=== PATIENT | female | born 1950 | race Caucasian/White ===

== ENCOUNTER 2024-03-06 09:50 | Outpatient (AMB) | payer MEDICARE, BC, SELFPAY ==
[2024-03-06 10:19] VITALS: BP 135/79; PULSE 65; RESP 18; TEMP 35.8; O2SAT 98; BMI 24.9
--- NOTE | 2024-03-06 10:19 | PD.GSCLVISIT ---
[facility] - [facility] 03/06/24 10:19 Height 1.68 m Height Method Stated Weight 70.392 kg Weight Measurement Method Standing Scale BMI 24.9 BP 135/79 H Blood Pressure Source Automatic Cuff Blood Pressure Location Right Upper Arm Position Sitting Respiration 18 Pulse 65 Pulse Source Monitor Temp 96.4 F L Temp Source Temporal Artery Scan Pulse Oximetry (%) 98 Oxygen Delivery Method Room Air Med/Allergies Allergies & Medications Allergies No Known Allergies Allergy (Verified 03/06/24 10:20) Medication Reconciliation losartan 50 mg tablet 50 mg PO QDAY 10/21/23 [History Confirmed 03/06/24] telmisartan 80 mg-amlodipine 10 mg tablet 1 tab PO QDAY 10/21/23 [History Confirmed 03/06/24] MA Intake Visit Data Collection New Patient or Established: Established Patient (seen at [facility] within 3 years) Seen by Clinical Staff ONLY (RN/MA): No Pain Present Currently: No Garment Alteration Examiner Required: No PCP or OBGYN visit in last 3 months: Yes Hx Now: No Do You Feel Safe at Home: Yes Authorities Contacted: N/A Smoking Status Smoking Status: Never smoker Immunization / Flu Flu Vaccine in the Last 12 Months: No Flu Vaccine Exclusion Criteria: Refused by Patient Past Medical History Past Medical History CARDIAC: Negative Cardiac Disorders or Congestive Heart Failure RESPIRATORY: Negative Chronic Obstructive Pulmonary Disease (COPD) or Asthma GENITOURINARY: Negative Renal Disease ENDOCRINE: Negative Diabetes Mellitus Type 1 or Diabetes Mellitus Type 2 HEMATOLOGIC: Negative Sickle Cell Disease Social History SMOKING STATUS: Smoking status: Never smoker ALCOHOL: Alcohol Intake: Current ALCOHOL FREQUENCY: Alcohol Intake Frequency: 0-2 Drinks per Day HOUSING: Housing: House LIVES WITH: Lives With: Spouse HPI HPI Narrative 73F with HTN referred with a perianal abscess s/p aspiration 10/20, with subsequent perianal fistula here for follow up. Pt reports she has had some days with no drainage but since yesterday the drainage returned. She continues to optimize her bowel regimen and is avoiding straining/diarrhea ROS Review of Systems Systems Reviewed: All systems reviewed, normal except as documented Objective/Exam General General Appearance: alert, cooperative and well groomed Resp Respiratory exam: Absent respiratory distress Rectal Rectal exam: Present other (external opening approx 3cm from the anal verge with red granulation tissue, no surrounding erythema. the other external opening which was 1cm from the anal verge is now closed) Assessment & Plan Diagnosis / Problem List (1) Perianal fistula: Status: Acute Assessment & Plan: 73F with HTN referred with a perianal abscess s/p aspiration 10/20, with subsequent perianal fistula here for follow up. I explained risks/benefits of colonoscopy as well as seton placement; all questions were answered and pt is agreeable to proceeding Advanced Care Planning Advance care planning discussed with:: patient Office Procedures GNS Level of Care Nursing/Assessment Patient Status: Established Patient Nursing Assessment/Reassesment: Medication Reconciliation, Update PMH in EMR and Vital Signs Coordination of Care: Complex Care and Chronic Disease 1-5, Education Complex Pt/Fam, Consent,records obtained, informed consent and Staff clarify orders Established Patient Charge Established Patient Point Assignment: 90 Established Patient Point Charge: EP Level 3 (80-115) Patient Portal Questionaires Social History Living Situation History Housing: House Tobacco History Smoking Status: Never smoker Alcohol History Alcohol Intake: Current Alcohol Intake Frequency: 0-2 Drinks per Day Domestic Abuse History Do You Feel Safe at Home: Yes Review of Systems Report any current symptoms Only answer those that you have currently: Past Medical History Past Medical History Have you ever been diagnosed with any of the following: Cardiology Problems Congestive Heart Failure: No Respiratory Problems Chronic Obstructive Pulmonary Disease (COPD): No Asthma: No Genital/Urinary Problems Renal Disease: No Endocrine Problems Diabetes Mellitus Type 1: No Diabetes Mellitus Type 2: No Blood Problems Sickle Cell Disease: No
== END 2024-03-06 10:44 | disposition home or self-care (01) ==
LOC: HODSRG 09:50
PROVIDERS: PCP Family Medicine; Referring Provider Family Medicine; Supervising Provider Surgery; Visit Provider Surgery
DX: K60.30 Anal fistula, unspecified (principal)
CPT/HCPCS: 99213; G0463

== ENCOUNTER 2024-04-20 13:57 | Outpatient (AMB) | payer MEDICARE, BC, SELFPAY ==
[2024-04-20 14:03] VITALS: BP 182/78; PULSE 64; RESP 16; TEMP 35.8; O2SAT 98; BMI 25.4
--- NOTE | 2024-04-20 14:03 | GSCOFFNT_ITS ---
[facility] - [facility] 04/20/24 14:03 Height 1.68 m Height Method Stated Weight 71.469 kg Weight Measurement Method Standing Scale BMI 25.4 BP 182/78 H Blood Pressure Source Automatic Cuff Blood Pressure Location Right Upper Arm Position Sitting Respiration 16 Pulse 64 Pulse Source Monitor Temp 96.4 F L Temp Source Temporal Artery Scan Pulse Oximetry (%) 98 Oxygen Delivery Method Room Air Med/Allergies Allergies & Medications Allergies No Known Allergies Allergy (Verified 04/20/24 14:04) Medication Reconciliation atenolol 25 mg tablet 25 mg PO DAILY 03/10/24 [History Confirmed 04/20/24] dorzolamide-timolol (PF) 2 %-0.5 % eye drops in a dropperette (Cosopt (PF)) 1 drp ophthalmic (eye) BID 03/10/24 [History Confirmed 04/20/24] valsartan 80 mg-hydrochlorothiazide 12.5 mg tablet 1 tab PO DAILY 03/10/24 [History Confirmed 04/20/24] ibuprofen 600 mg tablet 600 mg PO Q6H PRN pain #30 tabs 03/15/24 [Rx Confirmed 04/20/24] oxycodone-acetaminophen 5 mg-325 mg tablet (Endocet) 1 tab PO Q6H PRN pain #30 tabs 03/15/24 [Rx Confirmed 04/20/24] MA Intake Visit Data Collection New Patient or Established: Established Patient (seen at [facility] within 3 years) Seen by Clinical Staff ONLY (RN/MA): No Reason for Visit:: post op fistula Pain Present Currently: No PCP or OBGYN visit in last 3 months: Yes Hx Now: No Do You Feel Safe at Home: Yes Smoking Status Smoking Status: Never smoker Immunization / Flu Flu Vaccine in the Last 12 Months: No Flu Vaccine Exclusion Criteria: Refused by Patient Past Medical History Past Medical History NEUROLOGIC: Negative Neurological Disorders or Seizures CARDIAC: Positive Cardiac Disorders and Hypertension; Negative Congestive Heart Failure RESPIRATORY: Negative Chronic Obstructive Pulmonary Disease (COPD) or Asthma GASTROINTESTINAL: Positive Gastrointestinal Disorders and Hemorrhoids; Negative Hepatitis GENITOURINARY: Negative Genitourinary Disorders or Renal Disease REPRODUCTIVE: Positive Previous Pregnancies (6, 3 children) MUSCULOSKELETAL: Positive Arthritis ENT: Positive Glaucoma ENDOCRINE: Negative Endocrine Disorders, Diabetes Mellitus Type 1 or Diabetes Mellitus Type 2 HEMATOLOGIC: Negative Blood Disorders or Sickle Cell Disease OTHER HISTORY: Positive Hospitalization (surgery,), Chicken Pox, Measles and Mumps; Negative Autoimmune Disease, Shingles, Blood Transfusions, Blood Transfusion Reaction, Anesthesia Reactions or Cancer Family History FAMILY HISTORY: Negative Family Psychiatric Problems, Family Respiratory Disorders, Family Cardiac Disorders, Family Gastrointestinal Problems, Family Cancer, Family Surgery or Family Anesthesia Reaction Surgical History SURGICAL: Positive Section (x3) Social History SMOKING STATUS: Smoking status: Never smoker ALCOHOL: Alcohol Intake: Current ALCOHOL FREQUENCY: Alcohol Intake Frequency: 0-2 Drinks per Day HOUSING: Housing: House LIVES WITH: Lives With: Spouse HPI HPI Narrative 73F with HTN referred with a perianal abscess s/p aspiration 10/20, with subsequent perianal fistula now s/p colonoscopy followed by seton placement 03/15/24, here for planned follow up. Pt states she had not been having any drainage from the fistula until this past week when she began having diarrhea, which she relates to her diagnosis of IBS. Pt denies any pain to the area, states she did not need any pain medication after surgery, denies any new complaints ROS Review of Systems Systems Reviewed: All systems reviewed, normal except as documented Objective/Exam General General Appearance: alert, cooperative and well groomed Resp Respiratory exam: Absent respiratory distress Rectal Rectal exam: Present other (right perianal fistula with seton in place, no surrounding erythema, no fluctuance or tenderness) Results Colonoscopy report and pathology of polyp reviewed, benign mucosa Assessment & Plan Diagnosis / Problem List (1) Perianal fistula: Status: Acute Assessment & Plan: 73F with HTN referred with a perianal abscess s/p aspiration 10/20, with subsequent perianal fistula now s/p colonoscopy followed by seton placement 03/15/24, here for planned follow up. As pt is having ongoing draining I explained that seton should remain in place and we will follow up in 6 weeks. All questions were answered and pt expressed understanding Advanced Care Planning Advance care planning discussed with:: other Office Procedures GNS Level of Care Nursing/Assessment Patient Status: Established Patient Nursing Assessment/Reassesment: Medication Reconciliation, Update PMH in EMR and Vital Signs Coordination of Care: Complex Care and Chronic Disease 1-5, Consent,records obtained, informed consent, Education Simp Pt/Fam, Results/Orders obtained and Staff clarify orders Established Patient Charge Established Patient Point Assignment: 90 Established Patient Point Charge: EP Level 3 (80-115) Patient Portal Questionaires Social History Living Situation History Housing: House Tobacco History Smoking Status: Never smoker Alcohol History Alcohol Intake: Current Alcohol Intake Frequency: 0-2 Drinks per Day Domestic Abuse History Do You Feel Safe at Home: Yes Review of Systems Report any current symptoms Only answer those that you have currently: Past Medical History Past Medical History Have you ever been diagnosed with any of the following: Neurological Problems Seizures: No Cardiology Problems Congestive Heart Failure: No Hypertension: Yes Respiratory Problems Chronic Obstructive Pulmonary Disease (COPD): No Asthma: No Stomache/Intestinal Problems Hepatitis: No Hemorrhoids: Yes Genital/Urinary Problems Renal Disease: No Reproductive Problems Previous Pregnancies: Yes (6, 3 children) Musculoskeletal Problems Arthritis: Yes Head,Eye,Nose,Throat Problems Glaucoma: Yes Endocrine Problems Diabetes Mellitus Type 1: No Diabetes Mellitus Type 2: No Blood Problems Sickle Cell Disease: No Other Problems Hospitalization: Yes (surgery,) Autoimmune Disease: No Shingles: No Blood Transfusions: No Blood Transfusion Reaction: No Anesthesia Reactions: No Chicken Pox: Yes Measles: Yes Mumps: Yes Cancer: No
== END 2024-04-20 14:36 | disposition home or self-care (01) ==
LOC: HODSRG 13:57
PROVIDERS: PCP Family Medicine; Referring Provider Family Medicine; Supervising Provider Surgery; Visit Provider Surgery
DX: Z48.815 Encounter for surgical aftercare following surgery on the digestive system (principal)
CPT/HCPCS: 99213; G0463

== ENCOUNTER → 2024-05-02 | Outpatient (CLI) | payer MEDICARE, BC, SELFPAY ==
--- NOTE | 2024-05-02 13:30 | XR_ITS ---
Examination: Breast ultrasound, unilateral, left complete Date and time of exam: May 02, 2024 1341 hrs. Indications: Mammogram March 17, 2024 12 mm focal asymmetry inner left breast CC view, anterior depth Technique: Real-time keller scale ultrasonographic imaging performed left breast including all 4 quadrants as well as nipple retroareolar and axillary region. Findings: 9:00 hyperechoic mass 3 x 5 mm 10:00 oval mass circumscribed 6 x 6 mm Impression: BI-RADS Category 3: Probably benign findings Recommend 1 additional 6 month left breast sonogram follow-up to document stability of nodules described above
--- NOTE | 2024-05-02 14:15 | XR_ITS ---
Examination: Diagnostic digital mammography, unilateral, left Computer aided detection 3-D breast Tomosynthesis, unilateral Date and time of exam: Or 0202 hrs. Indications: Mammogram March 17, 2024 12 mm focal asymmetry inner left breast CC view Technique: Nonmagnified MLO, CC views of the left breast have been obtained, reconstructed from 3-D Tomosynthesis images. R2 computer aided detection program utilized for evaluation of suspicious masses and/or abnormal calcifications. 3-D Tomosynthesis images obtained. Findings: Scattered areas of fibroglandular density. No suspicious mass is noted on the spot compression views Impression: BI-RADS category 2: Benign findings Return to yearly follow-up mammography Please see the left breast sonogram report today recommending 6 month left breast sonogram follow-up to document stability of 9:00 10:00 nodules left breast described on the ultrasound report
== END | disposition home or self-care (01) ==
LOC: CDIM 13:15
PROVIDERS: PCP Family Medicine; Referring Provider Internal Medicine; Visit Provider Internal Medicine
DX: R92.322 Mammographic fibroglandular density, left breast (principal); N63.25 Unspecified lump in the left breast, overlapping quadrants; N63.22 Unspecified lump in the left breast, upper inner quadrant
CPT/HCPCS: 76641; 77061; 77065; G0279

== ENCOUNTER 2024-06-05 14:26 | Outpatient (AMB) | payer MEDICARE, BC, SELFPAY ==
[2024-06-05 14:36] VITALS: BP 128/74; PULSE 75; RESP 19; TEMP 36.1; O2SAT 97; BMI 25.0
--- NOTE | 2024-06-05 14:36 | GSCOFFNT_ITS ---
Vital Signs - [facility] 06/05/24 14:36 Height 1.68 m Height Method Stated Weight 70.817 kg Weight Measurement Method Standing Scale BMI 25.0 BP 128/74 Blood Pressure Source Automatic Cuff Blood Pressure Location Left Upper Arm Position Sitting Respiration 19 Pulse 75 Pulse Source Monitor Temp 96.9 F Temp Source Temporal Artery Scan Pulse Oximetry (%) 97 Oxygen Delivery Method Room Air Med/Allergies Allergies & Medications Allergies No Known Allergies Allergy (Verified 06/05/24 14:37) Medication Reconciliation atenolol 25 mg tablet 25 mg PO DAILY 03/10/24 [History Confirmed 06/05/24] dorzolamide-timolol (PF) 2 %-0.5 % eye drops in a dropperette (Cosopt (PF)) 1 drp ophthalmic (eye) BID 03/10/24 [History Confirmed 06/05/24] valsartan 80 mg-hydrochlorothiazide 12.5 mg tablet 1 tab PO DAILY 03/10/24 [History Confirmed 06/05/24] ibuprofen 600 mg tablet 600 mg PO Q6H PRN pain #30 tabs 03/15/24 [Rx Confirmed 06/05/24] oxycodone-acetaminophen 5 mg-325 mg tablet (Endocet) 1 tab PO Q6H PRN pain #30 tabs 03/15/24 [Rx Confirmed 06/05/24] MA Intake Visit Data Collection New Patient or Established: Established Patient (seen at [facility] within 3 years) Seen by Clinical Staff ONLY (RN/MA): No Pain Present Currently: No Cook Enchilada Required: No PCP or OBGYN visit in last 3 months: Yes Hx Now: No Do You Feel Safe at Home: Yes Authorities Contacted: N/A Smoking Status Smoking Status: Never smoker Immunization / Flu Flu Vaccine in the Last 12 Months: No Flu Vaccine Exclusion Criteria: No Exclusion Criteria Past Medical History Past Medical History NEUROLOGIC: Negative Neurological Disorders or Seizures CARDIAC: Positive Cardiac Disorders and Hypertension; Negative Congestive Heart Failure RESPIRATORY: Negative Chronic Obstructive Pulmonary Disease (COPD) or Asthma GASTROINTESTINAL: Positive Gastrointestinal Disorders and Hemorrhoids; Negative Hepatitis GENITOURINARY: Negative Genitourinary Disorders or Renal Disease REPRODUCTIVE: Positive Previous Pregnancies (6, 3 children) MUSCULOSKELETAL: Positive Arthritis ENT: Positive Glaucoma ENDOCRINE: Negative Endocrine Disorders, Diabetes Mellitus Type 1 or Diabetes Mellitus Type 2 HEMATOLOGIC: Negative Blood Disorders or Sickle Cell Disease OTHER HISTORY: Positive Hospitalization (surgery,), Chicken Pox, Measles and Mumps; Negative Autoimmune Disease, Shingles, Blood Transfusions, Blood Transfusion Reaction, Anesthesia Reactions or Cancer Family History FAMILY HISTORY: Negative Family Psychiatric Problems, Family Respiratory Disorders, Family Cardiac Disorders, Family Gastrointestinal Problems, Family Cancer, Family Surgery or Family Anesthesia Reaction Surgical History SURGICAL: Positive Section (x3) Social History SMOKING STATUS: Smoking status: Never smoker ALCOHOL: Alcohol Intake: Current ALCOHOL FREQUENCY: Alcohol Intake Frequency: 0-2 Drinks per Day HOUSING: Housing: House LIVES WITH: Lives With: Spouse HPI HPI Narrative 73F with HTN referred with a perianal abscess s/p aspiration 10/20, with subsequent perianal fistula now s/p colonoscopy followed by seton placement 03/15/24, here for planned follow up. Pt states she has had no drainage the past couple of weeks, and she has no pain except the skin lateral to the seton is somewhat irritated. Her BMs remain regular without any straining or diarrhea Objective/Exam General General Appearance: alert, cooperative and well groomed Resp Respiratory exam: Absent respiratory distress Rectal Rectal exam: Present other (left perianal seton in place with small area of eryt karina lateral to the external opening, tender, no fluctuance or bleeding) Assessment & Plan Diagnosis / Problem List (1) Perianal fistula: Status: Acute Assessment & Plan: 73F with perianal fistula s/p seton placement 03/2024, now with decreased draina ge planned for definitive surgery KRYS. I explained benefits/risks of ligation of intersphincteric fistula tract including pain, bleeding, infection, incontinence, and fistula persistence/recurrence. Pt expressed understanding and agrees to proceed Advanced Care Planning Advance care planning discussed with:: patient Office Procedures GNS Level of Care Nursing/Assessment Patient Status: Established Patient Nursing Assessment/Reassesment: Medication Reconciliation, Update PMH in EMR and Vital Signs Coordination of Care: Complex Care and Chronic Disease 1-5, Consent,records obtained, informed consent, Education Simp Pt/Fam, Results/Orders obtained and Staff clarify orders Established Patient Charge Established Patient Point Assignment: 90 Established Patient Point Charge: EP Level 3 (80-115) Patient Portal Questionaires Social History Living Situation History Housing: House Tobacco History Smoking Status: Never smoker Alcohol History Alcohol Intake: Current Alcohol Intake Frequency: 0-2 Drinks per Day Domestic Abuse History Do You Feel Safe at Home: Yes Review of Systems Report any current symptoms Only answer those that you have currently: Past Medical History Past Medical History Have you ever been diagnosed with any of the following: Neurological Problems Seizures: No Cardiology Problems Congestive Heart Failure: No Hypertension: Yes Respiratory Problems Chronic Obstructive Pulmonary Disease (COPD): No Asthma: No Stomache/Intestinal Problems Hepatitis: No Hemorrhoids: Yes Genital/Urinary Problems Renal Disease: No Reproductive Problems Previous Pregnancies: Yes (6, 3 children) Musculoskeletal Problems Arthritis: Yes Head,Eye,Nose,Throat Problems Glaucoma: Yes Endocrine Problems Diabetes Mellitus Type 1: No Diabetes Mellitus Type 2: No Blood Problems Sickle Cell Disease: No Other Problems Hospitalization: Yes (surgery,) Autoimmune Disease: No Shingles: No Blood Transfusions: No Blood Transfusion Reaction: No Anesthesia Reactions: No Chicken Pox: Yes Measles: Yes Mumps: Yes Cancer: No
== END 2024-06-05 14:55 | disposition home or self-care (01) ==
PROVIDERS: PCP Family Medicine; Referring Provider Family Medicine; Supervising Provider Surgery; Visit Provider Surgery
DX: K60.30 Anal fistula, unspecified (principal)
CPT/HCPCS: 99213; G0463

== ENCOUNTER 2024-06-29 11:28 | Outpatient (AMB) | payer MEDICARE, BC, SELFPAY ==
[2024-06-29 11:35] VITALS: BP 169/83; PULSE 64; RESP 18; TEMP 36.4; O2SAT 98; BMI 25.5
--- NOTE | 2024-06-29 11:35 | PD.GSCLVISIT ---
Vital Signs - [facility] 06/29/24 11:35 Height 1.68 m Height Method Stated Weight 71.838 kg Weight Measurement Method Standing Scale BMI 25.5 BP 169/83 H Blood Pressure Source Automatic Cuff Blood Pressure Location Left Upper Arm Position Sitting Respiration 18 Pulse 64 Pulse Source Monitor Temp 97.6 F Temp Source Temporal Artery Scan Pulse Oximetry (%) 98 Oxygen Delivery Method Room Air Med/Allergies Allergies & Medications Allergies No Known Allergies Allergy (Verified 06/05/24 14:37) MA Intake Visit Data Collection New Patient or Established: Established Patient (seen at [facility] within 3 years) Seen by Clinical Staff ONLY (RN/MA): No Pain Present Currently: No Pain scale:: 0 System Support Administrator Required: No PCP or OBGYN visit in last 3 months: No Do You Feel Safe at Home: Yes Authorities Contacted: N/A Smoking Status Smoking Status: Never smoker Immunization / Flu Flu Vaccine in the Last 12 Months: No Flu Vaccine Exclusion Criteria: Refused by Patient Past Medical History Past Medical History NEUROLOGIC: Negative Neurological Disorders or Seizures CARDIAC: Positive Cardiac Disorders and Hypertension; Negative Congestive Heart Failure RESPIRATORY: Negative Chronic Obstructive Pulmonary Disease (COPD) or Asthma GASTROINTESTINAL: Positive Gastrointestinal Disorders and Hemorrhoids; Negative Hepatitis GENITOURINARY: Negative Genitourinary Disorders or Renal Disease REPRODUCTIVE: Positive Previous Pregnancies (6, 3 children) MUSCULOSKELETAL: Positive Arthritis ENT: Positive Glaucoma ENDOCRINE: Negative Endocrine Disorders, Diabetes Mellitus Type 1 or Diabetes Mellitus Type 2 HEMATOLOGIC: Negative Blood Disorders or Sickle Cell Disease OTHER HISTORY: Positive Hospitalization (surgery,), Chicken Pox, Measles and Mumps; Negative Autoimmune Disease, Shingles, Blood Transfusions, Blood Transfusion Reaction, Anesthesia Reactions or Cancer Family History FAMILY HISTORY: Negative Family Psychiatric Problems, Family Respiratory Disorders, Family Cardiac Disorders, Family Gastrointestinal Problems, Family Cancer, Family Surgery or Family Anesthesia Reaction Surgical History SURGICAL: Positive Section (x3) Social History SMOKING STATUS: Smoking status: Never smoker ALCOHOL: Alcohol Intake: Current ALCOHOL FREQUENCY: Alcohol Intake Frequency: 0-2 Drinks per Day HOUSING: Housing: House LIVES WITH: Lives With: Spouse HPI HPI Narrative 73F with perianal fistula s/p seton placement 03/2024, here for follow up before definitive surgery. Pt states for the past couple of weeks she has noticed a slight increase in drainage; she does not require a pad every day but does feel the drainage at times when she walks. Her BMs remain soft and regular without any straining and she has no pain to the area ROS Review of Systems Systems Reviewed: All systems reviewed, normal except as documented Objective/Exam General General Appearance: alert, cooperative and well groomed Resp Respiratory exam: Absent respiratory distress Rectal Rectal exam: Present other (seton in place to right perianal fistula, no active drainage, no bleeding, no erythema) Assessment & Plan Diagnosis / Problem List (1) Perianal fistula: Status: Acute Assessment & Plan: 73F with perianal fistula s/p seton placement 03/2024, who had been planned for definitive surgery Jul 05, 2024 however has noticed a slight increase in drainage in the past couple of weeks. Given this I explained it will be best to hold off on surgery to increase the chances of cure. Pt expressed understanding and is agreeable with this plan Advanced Care Planning Advance care planning discussed with:: other Office Procedures GNS Level of Care Nursing/Assessment Patient Status: Established Patient Nursing Assessment/Reassesment: Medication Reconciliation, Update PMH in EMR and Vital Signs Coordination of Care: Complex Care and Chronic Disease 1-5, Consent,records obtained, informed consent, Lab and Imaging orders, Results/Orders obtained and Staff clarify orders Established Patient Charge Established Patient Point Assignment: 90 Established Patient Point Charge: EP Level 3 (80-115) Patient Portal Questionaires Social History Living Situation History Housing: House Tobacco History Smoking Status: Never smoker Alcohol History Alcohol Intake: Current Alcohol Intake Frequency: 0-2 Drinks per Day Domestic Abuse History Do You Feel Safe at Home: Yes Review of Systems Report any current symptoms Only answer those that you have currently: Past Medical History Past Medical History Have you ever been diagnosed with any of the following: Neurological Problems Seizures: No Cardiology Problems Congestive Heart Failure: No Hypertension: Yes Respiratory Problems Chronic Obstructive Pulmonary Disease (COPD): No Asthma: No Stomache/Intestinal Problems Hepatitis: No Hemorrhoids: Yes Genital/Urinary Problems Renal Disease: No Reproductive Problems Previous Pregnancies: Yes (6, 3 children) Musculoskeletal Problems Arthritis: Yes Head,Eye,Nose,Throat Problems Glaucoma: Yes Endocrine Problems Diabetes Mellitus Type 1: No Diabetes Mellitus Type 2: No Blood Problems Sickle Cell Disease: No Other Problems Hospitalization: Yes (surgery,) Autoimmune Disease: No Shingles: No Blood Transfusions: No Blood Transfusion Reaction: No Anesthesia Reactions: No Chicken Pox: Yes Measles: Yes Mumps: Yes Cancer: No
== END 2024-06-29 11:51 | disposition home or self-care (01) ==
LOC: HODSRG 11:28
PROVIDERS: PCP Family Medicine; Referring Provider Family Medicine; Supervising Provider Surgery; Visit Provider Surgery
DX: K60.30 Anal fistula, unspecified (principal)
CPT/HCPCS: 99213; G0463

== ENCOUNTER 2024-08-07 10:50 | Outpatient (AMB) | payer MEDICARE, BC, SELFPAY ==
[2024-08-07 11:09] VITALS: BP 158/73; PULSE 56; RESP 18; TEMP 36.4; O2SAT 99; BMI 25.4
--- NOTE | 2024-08-07 11:09 | GSCOFFNT_ITS ---
[facility] - [facility] 08/07/24 11:09 Height 1.68 m Height Method Stated Weight 71.838 kg Weight Measurement Method Standing Scale BMI 25.4 BP 158/73 H Blood Pressure Source Automatic Cuff Blood Pressure Location Right Upper Arm Position Sitting Respiration 18 Pulse 56 L Pulse Source Monitor Temp 97.6 F Temp Source Temporal Artery Scan Pulse Oximetry (%) 99 Oxygen Delivery Method Room Air Med/Allergies Allergies & Medications Allergies No Known Allergies Allergy (Verified 08/07/24 11:10) Medication Reconciliation atenolol 25 mg tablet 25 mg PO DAILY 03/10/24 [History Confirmed 08/07/24] dorzolamide-timolol (PF) 2 %-0.5 % eye drops in a dropperette (Cosopt (PF)) 1 drp ophthalmic (eye) BID 03/10/24 [History Confirmed 08/07/24] ibuprofen 600 mg tablet 600 mg PO Q6H PRN pain #30 tabs 03/15/24 [Rx Confirmed 08/07/24] oxycodone-acetaminophen 5 mg-325 mg tablet (Endocet) 1 tab PO Q6H PRN pain #30 tabs 03/15/24 [Rx Confirmed 08/07/24] valsartan 80 mg tablet 80 mg PO QDAY 08/07/24 [History Confirmed 08/07/24] MA Intake Visit Data Collection New Patient or Established: Established Patient (seen at [facility] within 3 years) Reason for Visit:: POSS ABSCESS Pain Present Currently: Yes Pain Location: Buttock Pain scale:: 3 Pain Scale Used: [employer]ment Alteration Required: No PCP or OBGYN visit in last 3 months: Yes Hx Now: No Do You Feel Safe at Home: Yes Authorities Contacted: N/A Smoking Status Smoking Status: Never smoker Immunization / Flu Flu Vaccine in the Last 12 Months: Yes Flu Vaccine Exclusion Criteria: No Exclusion Criteria Past Medical History Past Medical History NEUROLOGIC: Negative Neurological Disorders or Seizures CARDIAC: Positive Cardiac Disorders and Hypertension; Negative Congestive Heart Failure RESPIRATORY: Negative Chronic Obstructive Pulmonary Disease (COPD) or Asthma GASTROINTESTINAL: Positive Gastrointestinal Disorders and Hemorrhoids; Negative Hepatitis GENITOURINARY: Negative Genitourinary Disorders or Renal Disease REPRODUCTIVE: Positive Previous Pregnancies (6, 3 children) MUSCULOSKELETAL: Positive Arthritis ENT: Positive Glaucoma ENDOCRINE: Negative Endocrine Disorders, Diabetes Mellitus Type 1 or Diabetes Mellitus Type 2 HEMATOLOGIC: Negative Blood Disorders or Sickle Cell Disease OTHER HISTORY: Positive Hospitalization (surgery,), Chicken Pox, Measles and Mumps; Negative Autoimmune Disease, Shingles, Blood Transfusions, Blood Transfusion Reaction, Anesthesia Reactions or Cancer Family History FAMILY HISTORY: Negative Family Psychiatric Problems, Family Respiratory Disorders, Family Cardiac Disorders, Family Gastrointestinal Problems, Family Cancer, Family Surgery or Family Anesthesia Reaction Surgical History SURGICAL: Positive Section (x3) Social History SMOKING STATUS: Smoking status: Never smoker ALCOHOL: Alcohol Intake: Current ALCOHOL FREQUENCY: Alcohol Intake Frequency: 0-2 Drinks per Day HOUSING: Housing: House LIVES WITH: Lives With: Spouse Travel Risk Travel Hx Recent Travel: No HPI HPI Narrative 73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 Pt reports she has noted some swelling and discomfort at the gluteal cleft but no drainage from the area; she has noted a flare up in her IBS the past couple of weeks with firmer stools but she has not had any drainage from the seton for the past week. Prior to that pt states she was having moderate drainage. 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 As her drainage has decreased I explained that it is reasonable to pursue definitive surgery; depending on intraoperative findings I will either perform ligation of intersphincteric tract vs fistulotomy. We discussed risks/benefits including pain, bleeding, infection and fistula recurrence. All questions were answered and pt is agreeable to proceeding Advanced Care Planning Advance care planning discussed with:: patient Office Procedures GNS Level of Care Nursing/Assessment Patient Status: Established Patient Nursing Assessment/Reassesment: Medication Reconciliation, Update PMH in EMR and Vital Signs Coordination of Care: Complex Care and Chronic Disease 1-5, Education Complex Pt/Fam, Consent,records obtained, informed consent, Results/Orders obtained and Staff clarify orders Established Patient Charge Established Patient Point Assignment: 95 Established Patient Point Charge: Level 3 (80-115) Patient Portal Questionaires Social History Living Situation History Housing: House Tobacco History Smoking Status: Never smoker Alcohol History Alcohol Intake: Current Alcohol Intake Frequency: 0-2 Drinks per Day Domestic Abuse History Do You Feel Safe at Home: Yes Review of Systems Report any current symptoms Only answer those that you have currently: Past Medical History Past Medical History Have you ever been diagnosed with any of the following: Neurological Problems Seizures: No Cardiology Problems Congestive Heart Failure: No Hypertension: Yes Respiratory Problems Chronic Obstructive Pulmonary Disease (COPD): No Asthma: No Stomache/Intestinal Problems Hepatitis: No Hemorrhoids: Yes Genital/Urinary Problems Renal Disease: No Reproductive Problems Previous Pregnancies: Yes (6, 3 children) Musculoskeletal Problems Arthritis: Yes Head,Eye,Nose,Throat Problems Glaucoma: Yes Endocrine Problems Diabetes Mellitus Type 1: No Diabetes Mellitus Type 2: No Blood Problems Sickle Cell Disease: No Other Problems Hospitalization: Yes (surgery,) Autoimmune Disease: No Shingles: No Blood Transfusions: No Blood Transfusion Reaction: No Anesthesia Reactions: No Chicken Pox: Yes Measles: Yes Mumps: Yes Cancer: No
== END 2024-08-07 11:31 | disposition home or self-care (01) ==
LOC: HODSRG 10:50
PROVIDERS: PCP Family Medicine; Referring Provider Family Medicine; Supervising Provider Surgery; Visit Provider Surgery
DX: K60.30 Anal fistula, unspecified (principal)
CPT/HCPCS: 99213; G0463

== ENCOUNTER 2024-08-23 07:00 | Day surgery (SDC) | payer MEDICARE, BC, SELFPAY ==
[2024-08-22 11:16] VITALS: BMI 25.5
[2024-08-22 12:13] LABS: Basophils # (Auto) 0.1 Thou/mm3 (0.0-0.2); Basophils % (Auto) 1 % (0-2.5); Eosinophils # (Auto) 0.1 Thou/mm3 (0.0-0.5); Eosinophils % (Auto) 1 % (0-10); Hematocrit 36.4 % (36.0-46.0); Hemoglobin 12.6 g/dL (12.0-16.0); Immature Granulocytes % (Auto) 0 % (0-0); Immature Granulocytes Auto 0.02 Thou/mm3 (0.00-0.00); Lymphocytes # (Auto) 2.7 Thou/mm3 (1.0-4.8); Lymphocytes % (Auto) 35 % (10-50); Mean Corpuscular HGB Conc 34.6 g/dl (31.0-37.0); Mean Corpuscular Hemoglobin 30.9 pg (25.0-35.0); Mean Corpuscular Volume 89 fL (80-100); Monocytes # (Auto) 0.5 Thou/mm3 (0.0-0.8); Monocytes % (Auto) 7 % (0-12); Neutrophils # (Auto) 4.3 Thou/mm3 (1.8-7.7); Neutrophils % (Auto) 57 % (37-80); Nucleated Red Blood Cell % 0 /100 WBC (0); Platelet Count 323 Thou/mm3 (140-440); RDW Standard Deviation 40.8 fL (36.4-46.3); Red Blood Count 4.08 Miln/mm3 (4.00-5.20); White Blood Count 7.7 Thou/mm3 (3.6-11.0)
[2024-08-22 12:25] LABS: Partial Thromboplastin Time 27.5 Seconds (22.0-36.0); Prothrombin Time 11.4 Seconds (9.0-12.2)
[2024-08-22 12:27] LABS: Alanine Aminotransferase 10 U/L (10-49); Albumin, Serum 4.3 gm/dL (3.4-4.8); Albumin/Globulin Ratio 1.9 (1.2-2.2); Alkaline Phosphatase 64 U/L (46-116); Anion Gap 4 (7-16); Aspartate Amino Transferase 18 U/L (0-34); BUN/Creatinine Ratio 14 Ratio (12-20); Bilirubin,Total 0.6 mg/dL (0.3-1.2); Blood Urea Nitrogen 10 mg/dL (9-23); Calcium 9.3 mg/dL (8.3-10.6); Calcium (Corrected) 9.3 mg/dL (8.5-10.1); Carbon Dioxide 27.6 mMol/L (20.0-31.0); Chloride 103 mMol/L (98-107); Creatinine (Component) 0.7 mg/dL (0.6-1.3); Estimated Creatinine Clearance 73.7 mL/min (>60); Globulin 2.3 gm/dL (2.3-3.5); Glucose 107 mg/dL (74-106); Osmolality,Calculated 269 (275-295); Potassium 4.6 mMol/L (3.4-5.1); Sodium 135 mMol/L (136-145); Total Protein 6.6 gm/dL (5.7-8.2); eGFR > 60 See Note
[2024-08-23] VITALS (7 sets, daily range): BP systolic 130–154; BP diastolic 48–83; PULSE 46–57; RESP 10–18; TEMP 36.4–37.1; O2SAT 99–100; BMI 25.2
[2024-08-23] MEDS: RINGERS LACTATED 1000 ML 1,000 ML 20 ML IV (07:53)
--- NOTE | 2024-08-23 09:56 | PD.SUROPNT ---
Date of Procedure 08/23/24 Pre Op Diagnosis Perianal fistula Post Op Diagnosis Same Procedure Examination under anesthesia, fistulotomy Findings Right posterior perianal fistula tract Procedure Description Patient is well-known to me as I have been treating her since October 2019 for for perianal fistula. She has had a seton in place since March 2024 and since then has noted a significant decrease in drainage, indicating that she was ready for definitive surgery. I had explained to the patient preoperatively that the method of definitive repair would depend heavily on intraoperative examination, and I enumerated the risks of ligation of intersphincteric tract versus fistulotomy. All questions were answered and patient expressed understanding. Patient was brought to the operating room, SCDs were placed and general anesthesia was induced. She was placed in lithotomy position with proper padding and was prepped and draped in the usual sterile fashion. After timeout a BARRIE was performed which was normal aside from patient's known seton. The seton was noted to be in the right posterior perianal region, just lateral to the midline. The fistula probe was placed through the tract and the seton was removed. Initially I planned to perform a ligation of intersphincteric fistula tract, so I made a curvilinear incision approximately 2 cm at the intersphincteric groove overlying the fistula tract using electrocautery. I attempted to bluntly dissect the tissues in order to isolate the fistula tract, however the tissues were quite friable and I did not feel that I would be able to perform a definitive ligation in this setting. As such at this point I instead performed a fistulotomy by cauterizing the fistula tract until the fistula probe was freed. I curetted the fistula tract and cauterized, for hemostasis and also to promote healing. The curvilinear incision that been made at the intersphincteric groove was approximated with interrupted 3-0 Vicryl sutures. There was no bleeding at the end of the case. Right pudendal nerve block was performed as well as a local block for total of 30 cc of half percent Marcaine. Patient was returned to supine position and extubated without complication. She was brought to PACU in stable condition Pathology / specimen None Estimated Blood Loss 20 Surgeon Marisol Griffin MD Surgical Staff Operation Date: 08/23/24 09:15 Case Staff Anesthesiologist: Kenny Valle RN First Assistant: Loan Griffin
--- NOTE | 2024-08-23 10:00 | SUR.PHASEI ---
1000 Patient arrived to recovery resting comfortably in [facility], drowsy and talking with staff, on oxygen 8L via oxy mask, breathing unlabored, vital signs stable, denies pain, dressing intact to buttock; dissolvable sutures, abd, mesh underwear, no bleeding noted, denies nausea, report received from Sunny MARTINI/Faina MARTINI and Dr. Valle
--- NOTE | 2024-08-23 10:01 | ESDS_ITS ---
Planned Discharge Date 08/23/24 DS: Providers Provider Primary care physician: Lio Arreguin MD Attending Provider on Admission: Marisol Griffin MD Attending Provider on DC: Marisol Griffin MD Discharging Provider: Marisol Griffin MD Diagnosis Problem List Completed Was Problem List Reviewed/Reconciled?: Yes Exam Vital Signs Temp Pulse Resp BP Pulse Ox 98.8 F 57 L 10 L 154/71 H 100 08/23/24 07:35 08/23/24 07:35 08/23/24 07:35 08/23/24 07:35 08/23/24 07:35 Constitutional Constitutional: no acute distress Routine Respiratory Exam Respiratory: Present no resp distress Discharge Plan Plan Patient Disposition: HOME (Self Care) Prescriptions/Referrals Prescriptions/Med Rec: New tramadol 50 mg tablet 50 mg PO Q6H PRN (Reason: pain) Qty: 30 0RF Rx Instructions: Take every 6 hours as needed for moderate to severe pain No Action valsartan 80 mg tablet 80 mg PO HS atenolol 25 mg tablet 25 mg PO DAILY Patient Comments: TAKE 1 TABLET BY MOUTH EVERY DAY dorzolamide-timolol (PF) [Cosopt (PF)] 2-0.5 % Dropperette 1 drp OPHTHALMIC (EYE) BID Referrals: Marisol Griffin MD [Physician] - (You will receive a phone call to confirm a follow-up appointment with me in 6 weeks. Please feel free to call in the meantime with concerns or questions) Lio Arreguin MD [Primary Care Provider] - Patient/Caregiver Discharge Instructions Other Discharge Activity Instructions:: Avoid constipation and diarrhea You may take sitz baths as needed for pain, bleeding and swelling starting 08/24 After this type of surgery some degree of fecal incontinence is expected. This should improve with time. Continue your regimen of adequate water intake and fiber supplementation for goal of 25 g/day, and if you are experiencing constipation it is okay to take stool softeners as needed If you develop worsening pain, fever, difficulty urinating or bleeding that does not stop please seek care in ER Education Materials: Taking a Sitz Bath, ED Anal Fistula Print Language: Barbadian Stand Alone Forms: Nelly Award Info., Patient Portal Info Letter Discharge Order Discharge Orders: Discharge (Routine); Ordered 08/23/24 Ordered By: Marisol Griffin Results Results: Laboratory Laboratory results: results reviewed Procedures Procedure Date 08/23/24 Procedures Examination under anesthesia, fistulotomy
--- NOTE | 2024-08-23 10:12 | SUR.PHASEI ---
1012 Dr. Griffin at bedside talking with patient, verbal order read-back received Tramadol 50mg oral tab x1 prior to discharge for patient, will place order and administer medication per MD order
[2024-08-23] MEDS: traMADol HCL 50 MG TABLET PO (10:27)
--- NOTE | 2024-08-23 10:34 | SUR.PHASEII ---
[address] Valle patient heartrate dropping to 45bpm, no new orders at this time, patient awake and alert, talking with staff
--- NOTE | 2024-08-23 10:58 | SUR.PHASEII ---
1058 Patient meets discharge criteria from recovery, awake and alert, breathing unlabored, vital signs stable, denies pain-given pain pill prior to discharge, dressing intact; no bleeding noted, drinking water; denies nausea, patient assisted with dressing patient into her clothing, discharge instructions given to patient and patients , signed discharge instructions; patient provided with sitz bath. Patient given all her belongings prior to discharge, transported via wheelchair and left in a private vehicle.
== END 2024-08-23 10:58 | disposition home or self-care (01) ==
PROVIDERS: Anesthesiology; PCP Family Medicine; Referring Provider Surgery; Visit Provider Surgery
PROC: (CPT 46275; principal; 2024-08-23 09:00)
DX: K60.30 Anal fistula, unspecified (principal)
CPT/HCPCS: 46275; 36415; 80053; 85025; 85610; 85730; A4217; A4649; J0131; J0461; J1100; J1885; J2250; J2405; J2704; J3010; J3490; J7120; A9270

== ENCOUNTER 2024-10-02 08:55 | Outpatient (AMB) | payer MEDICARE, BC, SELFPAY ==
[2024-10-02 09:07] VITALS: BP 154/77; PULSE 65; RESP 18; TEMP 35.9; O2SAT 98; BMI 25.2
--- NOTE | 2024-10-02 09:07 | PD.GSCLVISIT ---
Vital Signs - [facility] 10/02/24 09:07 Height 1.68 m Height Method Stated Weight 71.271 kg Weight Measurement Method Standing Scale BMI 25.2 BP 154/77 H Blood Pressure Source Automatic Cuff Blood Pressure Location Left Upper Arm Position Sitting Respiration 18 Pulse 65 Pulse Source Monitor Temp 96.7 F L Temp Source Temporal Artery Scan Pulse Oximetry (%) 98 Oxygen Delivery Method Room Air Med/Allergies Allergies & Medications Allergies No Known Allergies Allergy (Verified 10/02/24 09:08) Medication Reconciliation atenolol 25 mg tablet 25 mg PO DAILY 03/10/24 [History Confirmed 10/02/24] dorzolamide-timolol (PF) 2 %-0.5 % eye drops in a dropperette (Cosopt (PF)) 1 drp ophthalmic (eye) BID 03/10/24 [History Confirmed 10/02/24] valsartan 80 mg tablet 80 mg PO HS 08/07/24 [History Confirmed 10/02/24] tramadol 50 mg tablet 50 mg PO Q6H PRN pain #30 tabs 08/23/24 [Rx Confirmed 10/02/24] MA Intake Visit Data Collection New Patient or Established: Established Patient (seen at [facility] within 3 years) Seen by Clinical Staff ONLY (RN/MA): No Reason for Visit:: FOLLOW UP SETON Pain Present Currently: No Customer Support Analyst Required: No PCP or OBGYN visit in last 3 months: Yes Hx Now: No Do You Feel Safe at Home: Yes Authorities Contacted: N/A Smoking Status Smoking Status: Never smoker Immunization / Flu Flu Vaccine in the Last 12 Months: No Flu Vaccine Exclusion Criteria: No Exclusion Criteria Past Medical History Past Medical History NEUROLOGIC: Negative Neurological Disorders or Seizures CARDIAC: Positive Cardiac Disorders and Hypertension; Negative Congestive Heart Failure RESPIRATORY: Negative Chronic Obstructive Pulmonary Disease (COPD) or Asthma GASTROINTESTINAL: Positive Gastrointestinal Disorders and Hemorrhoids; Negative Hepatitis GENITOURINARY: Negative Genitourinary Disorders or Renal Disease REPRODUCTIVE: Positive Previous Pregnancies (6, 3 children) MUSCULOSKELETAL: Positive Arthritis ENT: Positive Glaucoma ENDOCRINE: Negative Endocrine Disorders, Diabetes Mellitus Type 1 or Diabetes Mellitus Type 2 HEMATOLOGIC: Negative Blood Disorders or Sickle Cell Disease OTHER HISTORY: Positive Hospitalization (surgery,), Chicken Pox, Measles and Mumps; Negative Autoimmune Disease, Shingles, Blood Transfusions, Blood Transfusion Reaction, Anesthesia Reactions or Cancer Family History FAMILY HISTORY: Negative Family Psychiatric Problems, Family Respiratory Disorders, Family Cardiac Disorders, Family Gastrointestinal Problems, Family Cancer, Family Surgery or Family Anesthesia Reaction Surgical History SURGICAL: Positive Section (x3) Social History SMOKING STATUS: Smoking status: Never smoker ALCOHOL: Alcohol Intake: Current ALCOHOL FREQUENCY: Alcohol Intake Frequency: 0-2 Drinks per Day HOUSING: Housing: House LIVES WITH: Lives With: Spouse HPI HPI Narrative 73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 Pt reports she had some pain at first but she did not need any prescription medications, and she continues to have perianal drainage but feels it is significantly decreased. She changes the gauze in her undergarment three times per day but notes the drainage is now just a dot of yellowish fluid. Pt is taking Mg citrate pills nightly and states her BMs are soft without any straining ROS Review of Systems Systems Reviewed: All systems reviewed, normal except as documented Objective/Exam General General Appearance: alert, cooperative and well groomed Resp Respiratory exam: Absent respiratory distress Rectal Rectal exam: Present other (right gluteal wound approx 1cm from anal verge, no surrounding erythema, no fluctuance, minimal yellowish drainage. 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 For that reason I applied silver nitrate today, will follow up in 6 weeks to assess drainage at that time Plan: Follow up in 6 weeks Orders: Orders Silver nitrate applicator topical stick Today Advanced Care Planning Advance care planning discussed with:: patient Office Procedures GNS Level of Care Nursing/Assessment Patient Status: Established Patient Nursing Assessment/Reassesment: Medication Reconciliation, Update PMH in EMR and Vital Signs Coordination of Care: Complex Care and Chronic Disease 1-5, Consent,records obtained, informed consent, Education Simp Pt/Fam, Results/Orders obtained and Staff clarify orders Established Patient Charge Established Patient Point Assignment: 90 Established Patient Point Charge: EP Level 3 (80-115) Patient Portal Questionaires Social History Living Situation History Housing: House Tobacco History Smoking Status: Never smoker Alcohol History Alcohol Intake: Current Alcohol Intake Frequency: 0-2 Drinks per Day Domestic Abuse History Do You Feel Safe at Home: Yes Review of Systems Report any current symptoms Only answer those that you have currently: Past Medical History Past Medical History Have you ever been diagnosed with any of the following: Neurological Problems Seizures: No Cardiology Problems Congestive Heart Failure: No Hypertension: Yes Respiratory Problems Chronic Obstructive Pulmonary Disease (COPD): No Asthma: No Stomache/Intestinal Problems Hepatitis: No Hemorrhoids: Yes Genital/Urinary Problems Renal Disease: No Reproductive Problems Previous Pregnancies: Yes (6, 3 children) Musculoskeletal Problems Arthritis: Yes Head,Eye,Nose,Throat Problems Glaucoma: Yes Endocrine Problems Diabetes Mellitus Type 1: No Diabetes Mellitus Type 2: No Blood Problems Sickle Cell Disease: No Other Problems Hospitalization: Yes (surgery,) Autoimmune Disease: No Shingles: No Blood Transfusions: No Blood Transfusion Reaction: No Anesthesia Reactions: No Chicken Pox: Yes Measles: Yes Mumps: Yes Cancer: No
== END 2024-10-02 09:29 | disposition home or self-care (01) ==
LOC: HODSRG 08:55
PROVIDERS: PCP Family Medicine; Referring Provider Family Medicine; Supervising Provider Surgery; Visit Provider Surgery
DX: K60.30 Anal fistula, unspecified (principal)
CPT/HCPCS: 17250; 99213; A9270; G0463

== ENCOUNTER → 2024-10-31 | Outpatient (CLI) | payer MEDICARE, BC, SELFPAY ==
--- NOTE | 2024-10-31 08:45 | XR_ITS ---
Examination: Breast ultrasound, unilateral, left complete Date and time of exam: October 31, 2024 0851 hours Comparison May 02, 2024 INDICATIONS: Left breast sonogram May 02, 2024 9:00 nodule 5 mm 10:00 nodule 6 mm Technique: Real-time keller scale ultrasonographic imaging performed left breast including all 4 quadrants as well as nipple retroareolar and axillary region. Findings: 9:00 circumscribed hyperechoic nodule 6 x 5 mm 10:00 cyst 3 x 3 mm IMPRESSION: BI-RADS Category 2: Benign findings
== END | disposition home or self-care (01) ==
LOC: CDIM 08:37
PROVIDERS: Referring Provider Internal Medicine; Visit Provider Internal Medicine
DX: R92.8 Other abnormal and inconclusive findings on diagnostic imaging of breast (principal)
CPT/HCPCS: 76641

== ENCOUNTER 2024-11-20 08:59 | Outpatient (AMB) | payer MEDICARE, BC, SELFPAY ==
--- NOTE | 2024-11-20 09:03 | PD.GSCLVISIT ---
Vital Signs - [facility] 11/20/24 09:07 Height 1.68 m Height Method Measured Weight 70.931 kg Weight Measurement Method Standing Scale BMI 25.1 BP 145/84 H Blood Pressure Source Automatic Cuff Blood Pressure Location Left Upper Arm Position Sitting Respiration 16 Pulse 72 Pulse Source Monitor Temp 97.9 F Temp Source Temporal Artery Scan Pulse Oximetry (%) 98 Oxygen Delivery Method Room Air Med/Allergies Allergies & Medications Allergies No Known Allergies Allergy (Verified 11/20/24 09:08) Medication Reconciliation atenolol 25 mg tablet 25 mg PO DAILY 03/10/24 [History Confirmed 11/20/24] dorzolamide-timolol (PF) 2 %-0.5 % eye drops in a dropperette (Cosopt (PF)) 1 drp ophthalmic (eye) BID 03/10/24 [History Confirmed 11/20/24] valsartan 80 mg tablet 80 mg PO HS 08/07/24 [History Confirmed 11/20/24] tramadol 50 mg tablet 50 mg PO Q6H PRN pain #30 tabs 08/23/24 [Rx Confirmed 11/20/24] MA Intake Visit Data Collection New Patient or Established: Established Patient (seen at [facility] within 3 years) Seen by Clinical Staff ONLY (RN/MA): No Reason for Visit:: 7 WEEK F/U Pain Present Currently: No Pain scale:: 0 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 PCP or OBGYN visit in last 3 months: Yes Hx Now: No Do You Feel Safe at Home: Yes Authorities Contacted: N/A Smoking Status Smoking Status: Never smoker Immunization / Flu Flu Vaccine in the Last 12 Months: No Flu Vaccine Exclusion Criteria: No Exclusion Criteria Past Medical History Past Medical History NEUROLOGIC: Negative Neurological Disorders or Seizures CARDIAC: Positive Cardiac Disorders and Hypertension; Negative Congestive Heart Failure RESPIRATORY: Negative Chronic Obstructive Pulmonary Disease (COPD) or Asthma GASTROINTESTINAL: Positive Gastrointestinal Disorders and Hemorrhoids; Negative Hepatitis GENITOURINARY: Negative Genitourinary Disorders or Renal Disease REPRODUCTIVE: Positive Previous Pregnancies (6, 3 children) MUSCULOSKELETAL: Positive Arthritis ENT: Positive Glaucoma ENDOCRINE: Negative Endocrine Disorders, Diabetes Mellitus Type 1 or Diabetes Mellitus Type 2 HEMATOLOGIC: Negative Blood Disorders or Sickle Cell Disease OTHER HISTORY: Positive Hospitalization (surgery,), Chicken Pox, Measles and Mumps; Negative Autoimmune Disease, Shingles, Blood Transfusions, Blood Transfusion Reaction, Anesthesia Reactions or Cancer Family History FAMILY HISTORY: Negative Family Psychiatric Problems, Family Respiratory Disorders, Family Cardiac Disorders, Family Gastrointestinal Problems, Family Cancer, Family Surgery or Family Anesthesia Reaction Surgical History SURGICAL: Positive Section (x3) Social History SMOKING STATUS: Smoking status: Never smoker ALCOHOL: Alcohol Intake: Current ALCOHOL FREQUENCY: Alcohol Intake Frequency: 0-2 Drinks per Day HOUSING: Housing: House LIVES WITH: Lives With: Spouse HPI HPI Narrative 74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 Pt states she has been doing well overall, with no pain and no drainage but she has had some recurrence of pain over the last few days which she attributes to sitting on a long flight from [place]. Pt states her BMs are somewhat loose, she is alternating metamucil and Mg citrate but she is not having any straining. 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 I recommended pt resume sitz baths as needed and continue her bowel regimen, will follow up in 3 months but pt is encouraged to reach out as needed before then Advanced Care Planning Advance care planning discussed with:: other Office Procedures GNS Level of Care Nursing/Assessment Patient Status: Established Patient Nursing Assessment/Reassesment: Medication Reconciliation, Update PMH in EMR and Vital Signs Coordination of Care: Complex Care and Chronic Disease 1-5, Consent,records obtained, informed consent, Education Simp Pt/Fam, Results/Orders obtained and Staff clarify orders Established Patient Charge Established Patient Point Assignment: 90 Established Patient Point Charge: EP Level 3 (80-115) Patient Portal Questionaires Social History Living Situation History Housing: House Tobacco History Smoking Status: Never smoker Alcohol History Alcohol Intake: Current Alcohol Intake Frequency: 0-2 Drinks per Day Domestic Abuse History Do You Feel Safe at Home: Yes Review of Systems Report any current symptoms Only answer those that you have currently: Past Medical History Past Medical History Have you ever been diagnosed with any of the following: Neurological Problems Seizures: No Cardiology Problems Congestive Heart Failure: No Hypertension: Yes Respiratory Problems Chronic Obstructive Pulmonary Disease (COPD): No Asthma: No Stomache/Intestinal Problems Hepatitis: No Hemorrhoids: Yes Genital/Urinary Problems Renal Disease: No Reproductive Problems Previous Pregnancies: Yes (6, 3 children) Musculoskeletal Problems Arthritis: Yes Head,Eye,Nose,Throat Problems Glaucoma: Yes Endocrine Problems Diabetes Mellitus Type 1: No Diabetes Mellitus Type 2: No Blood Problems Sickle Cell Disease: No Other Problems Hospitalization: Yes (surgery,) Autoimmune Disease: No Shingles: No Blood Transfusions: No Blood Transfusion Reaction: No Anesthesia Reactions: No Chicken Pox: Yes Measles: Yes Mumps: Yes Cancer: No
[2024-11-20 09:07] VITALS: BP 145/84; PULSE 72; RESP 16; TEMP 36.6; O2SAT 98; BMI 25.1
== END 2024-11-20 09:19 | disposition home or self-care (01) ==
LOC: HODSRG 08:59
PROVIDERS: PCP Family Medicine; Referring Provider Family Medicine; Supervising Provider Surgery; Visit Provider Surgery
DX: Z48.815 Encounter for surgical aftercare following surgery on the digestive system (principal); K64.9 Unspecified hemorrhoids; I10 Essential (primary) hypertension
CPT/HCPCS: 99213; G0463

== ENCOUNTER 2024-11-27 08:20 | Day surgery (SDC) | payer MEDICARE, BC, SELFPAY ==
[2024-11-27] VITALS (8 sets, daily range): BP systolic 125–181; BP diastolic 60–80; PULSE 48–62; RESP 13–20; TEMP 36.9–37; O2SAT 95–100; BMI 25.2
[2024-11-27] MEDS: BENZOCAINE 20% (Hurricaine) SPRAY 1 DOSE TOP (10:40)
[2024-11-27] MEDS: SODIUM CHLORIDE 0.9% 500 ML 500 ML 20 ML IV (10:40)
[2024-11-27] MEDS: MIDAZOLAM INJ 1 MG/ML VIAL 2 ML (ASD USE ONLY) 2 MG IVP (10:41)
[2024-11-27] MEDS: fentaNYL CIT INJ 50 mCg/ML AMP 2ML (ASD USE ONLY) IVP (10:41)
== END 2024-11-27 11:25 | disposition home or self-care (01) ==
PROVIDERS: PCP Family Medicine; Referring Provider Specialist; Visit Provider Specialist
PROC: (CPT 43239; principal; 2024-11-27 09:30)
DX: K20.90 Esophagitis, unspecified without bleeding (principal); K29.70 Gastritis, unspecified, without bleeding; K31.89 Other diseases of stomach and duodenum; K44.9 Diaphragmatic hernia without obstruction or gangrene; K29.80 Duodenitis without bleeding; Z87.19 Personal history of other diseases of the digestive system; K21.9 Gastro-esophageal reflux disease without esophagitis; I10 Essential (primary) hypertension; Z79.899 Other long term (current) drug therapy
CPT/HCPCS: 43239; J1200; J2250; J3010; J7999; A9270